=== PATIENT | male | born 1970 | race African-American/Black ===

== ENCOUNTER 2016-12-05 15:28 | Emergency (ER) | payer OTHER ==
[~2016-12-05] VITALS: Ht 165.1 cm; Wt 72.6 kg
== END 2016-12-05 17:00 | disposition home or self-care (01) ==
LOC: ED 15:28
DX: S00.12XA Contusion of left eyelid and periocular area, initial encounter (principal); Y04.0XXA Assault by unarmed brawl or fight, initial encounter
CPT/HCPCS: 99283